=== PATIENT | female | born 1985 | race Asian ===

== ENCOUNTER 2017-07-03 10:16 | Emergency (ER) | payer MEDICAID, OTHER ==
[~2017-07-03] VITALS: Ht 154.9 cm; Wt 63.6 kg
[~2017-07-03 10:16] MED LIST: AMLO-512 PO; ATOR10TA84 PO; DSS100 PO; FERR-89 PO; HYDR25TA84 PO; LOSA50TA37 PO
[2017-07-03] MEDS ORDERED: CefTRIAXone SODIUM 1 GM/VIAL IM ONE (12:45)
[2017-07-03] MEDS ORDERED: LIDOCAINE HCL/PF 1% 2 ML VIAL IM ONE (12:45)
[2017-07-03] MEDS ORDERED: CloNIDine HCL 0.1 MG TABLET PO ONE (12:45)
[2017-07-03] MEDS ORDERED: HYDR-2924 PO (12:46)
[2017-07-03 13:51] VITALS: BP 169/98
== END 2017-07-03 14:38 | disposition home or self-care (01) ==
LOC: EMS 10:16
DX: J18.9 Pneumonia, unspecified organism (principal); I10 Essential (primary) hypertension
CPT/HCPCS: 71020; 96372; 99284; J0696; J3490

== ENCOUNTER 2017-07-06 00:26 | Inpatient (IN) | payer MEDICAID ==
[2017-07-06] VITALS (20 sets, daily range): BP systolic 131–158; BP diastolic 56–88
[~2017-07-06] VITALS: Ht 154.9 cm; Wt 70.7 kg
[~2017-07-06 00:26] MED LIST changes: -ATOR10TA84 PO; -DSS100 PO; -FERR-89 PO; +HYDR-2924 PO; -HYDR25TA84 PO; -LOSA50TA37 PO
[2017-07-06] MEDS ORDERED: AZIT250T9 PO (00:39)
[2017-07-06 01:20] LABS: BASOPHILS # (AUTO) 0.01 K/uL (0.00-0.20); EOSINOPHILS # (AUTO) 0.01 K/uL (0.00-0.70); EOSINOPHILS % (AUTO) 0.09 % (1.0-6.0); LYMPHOCYTES # (AUTO) 0.3 K/uL (1.0-4.8); LYMPHOCYTES % (AUTO) 1.9 % (22.0-44.0); MEAN CORPUSCULAR HEMOGLOBIN 28.2 pg (26.0-34.0); MEAN CORPUSCULAR HGB CONC 33.3 G/dL (31.0-37.0); MEAN CORPUSCULAR VOLUME 85 fL (80-100); MONOCYTES # (AUTO) 0.1 K/uL (0.1-1.0); MONOCYTES % (AUTO) 0.6 % (2.0-9.0); NEUTROPHILS # (AUTO) 15.1 K/uL (1.8-7.7); PLATELET COUNT (AUTO) 167 K/uL (150-450); RED CELL DISTRIBUTION WIDTH 17.1 % (11.5-14.5); WHITE BLOOD COUNT (AUTO) 15.5 K/uL (4.5-11.0)
[2017-07-06 01:26] LABS: NEUTROPHILS % (AUTO) 97.4 % (40.0-70.0)
[2017-07-06 01:27] LABS: HEMOGLOBIN 5.9 g/dL (12.0-16.0)
[2017-07-06 01:28] LABS: HEMATOCRIT 17.8 % (36-46)
[2017-07-06 01:43] LABS: ALBUMIN 3.3 g/dL (3.4-5.0); BILIRUBIN,TOTAL 0.5 mg/dL (0.1-1.0); CALCIUM, TOTAL 7.5 mg/dL (8.8-10.5); CREATININE 13.25 mg/dL (0.60-1.30); POTASSIUM 3.7 mmol/L (3.5-5.1); TOTAL PROTEIN, SERUM 7.7 g/dL (6.4-8.2)
[2017-07-06] MEDS ORDERED: SODIUM CHLORIDE 0.9% 1,000 ML IV ONE ×3 (02:15→03:30)
[2017-07-06] MEDS ORDERED: 0.9% SODIUM CHLORIDE 10 ML SYRINGE IVP PRN (03:30)
[2017-07-06] MEDS ORDERED: HYDROCODONE/ACETAMINOPHEN 5-325 MG TABLET PO PRN (03:30)
[2017-07-06] MEDS ORDERED: MORPHINE SULFATE 4 MG/ML SYRINGE IVP PRN (03:30)
[2017-07-06] MEDS ORDERED: ONDANSETRON HCL 4 MG/2 ML VIAL IVP PRN (03:30)
[2017-07-06] MEDS ORDERED: ACETAMINOPHEN 325 MG TABLET PO PRN ×2 (03:30→03:45)
[2017-07-06 04:03] LABS: APPEARANCE,URINE CLEAR (CLEAR); GLUCOSE, URINE (UA) 250 mg/dL (NEGATIVE); KETONES,URINE NEGATIVE (NEGATIVE); LEUKOCYTE ESTERASE ,URINE NEGATIVE (NEGATIVE); OCCULT BLOOD,URINE NEGATIVE (NEGATIVE); PROTEIN,URINE SEE CONFIRM (NEGATIVE)
[2017-07-06 04:06] LABS: ADD UA MICROSCOPIC YES
[2017-07-06 04:30] LABS: SULFOSALICYLIC ACID,URINE 3+ (Negative)
[2017-07-06 04:31] LABS: RBC,URINE 0-2 /HPF (0-2); WBC,URINE 0-2 /HPF (0-5)
[2017-07-06 07:04] LABS: CREATININE 12.61 mg/dL (0.60-1.30); MAGNESIUM 2.2 mg/dL (1.80-2.40); PHOSPHORUS 7.3 mg/dL (2.5-4.9); POTASSIUM 3.8 mmol/L (3.5-5.1)
[2017-07-06] MEDS: CefTRIAXone 1 GM/DEXTROSE 50 ML IV SCH (07:50)
[2017-07-06] MEDS ORDERED: SODIUM CHLORIDE 0.9% 1,000 ML IV SCH (08:00)
[2017-07-06] MEDS: PANTOPRAZOLE SODIUM 40 MG/VIAL IVP SCH (08:47)
[2017-07-06] MEDS: HydrALAZINE HCL 50 MG TABLET PO SCH ×2 (08:47→20:50)
[2017-07-06] MEDS ORDERED: AmLODIPine BESYLATE 10 MG TABLET PO SCH (09:00)
[2017-07-06] MEDS ORDERED: HydrALAZINE HCL 50 MG TABLET PO SCH (09:00)
[2017-07-06] MEDS ORDERED: SODIUM CHLORIDE 0.9% 500 ML IV ONE (09:23)
[2017-07-06] MEDS: AmLODIPine BESYLATE 10 MG TABLET PO SCH (09:37)
[2017-07-06] MEDS: HYDROCODONE/ACETAMINOPHEN 5-325 MG TABLET PO PRN ×2 (09:39→22:45)
[2017-07-06] MEDS: CALCIUM ACETATE 667 MG CAPSULE PO SCH ×2 (12:04→18:22)
[2017-07-06] MEDS: ONDANSETRON HCL 4 MG/2 ML VIAL IVP PRN (23:06)
[2017-07-07 04:51] VITALS: BP 152/84
[2017-07-07 07:52] VITALS: BP 155/85
[2017-07-07] MEDS: CALCIUM ACETATE 667 MG CAPSULE PO SCH ×3 (08:15→18:40)
[2017-07-07] MEDS: AmLODIPine BESYLATE 10 MG TABLET PO SCH (08:15)
[2017-07-07] MEDS: HydrALAZINE HCL 50 MG TABLET PO SCH ×2 (08:15→20:29)
[2017-07-07] MEDS: PANTOPRAZOLE SODIUM 40 MG/VIAL IVP SCH (09:10)
[2017-07-07] MEDS: CefTRIAXone 1 GM/DEXTROSE 50 ML IV SCH (09:10)
[2017-07-07 09:14] LABS: BASOPHILS # (AUTO) 0.01 K/uL (0.00-0.20); BASOPHILS % (AUTO) 0.1 % (0.0-2.0); EOSINOPHILS # (AUTO) 0.08 K/uL (0.00-0.70); EOSINOPHILS % (AUTO) 0.85 % (1.0-6.0); HEMATOCRIT 23.7 % (36-46); HEMOGLOBIN 7.9 g/dL (12.0-16.0); LYMPHOCYTES # (AUTO) 0.8 K/uL (1.0-4.8); MEAN CORPUSCULAR HGB CONC 33.4 G/dL (31.0-37.0); MEAN CORPUSCULAR VOLUME 84 fL (80-100); MONOCYTES # (AUTO) 0.5 K/uL (0.1-1.0); MONOCYTES % (AUTO) 4.5 % (2.0-9.0); NEUTROPHILS # (AUTO) 8.5 K/uL (1.8-7.7); PLATELET COUNT (AUTO) 148 K/uL (150-450); RED BLOOD CELL COUNT(AUTO) 2.83 MIL/uL (4.00-5.20); RED CELL DISTRIBUTION WIDTH 16.3 % (11.5-14.5); WHITE BLOOD COUNT (AUTO) 9.8 K/uL (4.5-11.0)
[2017-07-07 09:15] LABS: NEUTROPHILS % (AUTO) 86.4 % (40.0-70.0)
[2017-07-07 09:22] LABS: CREATININE 13.26 mg/dL (0.60-1.30); POTASSIUM 3.5 mmol/L (3.5-5.1)
[2017-07-07 09:47] LABS: RBC MORPHOLOGY COMMENT ABNORMAL RBC MORPH
[2017-07-07] MEDS: ONDANSETRON HCL 4 MG/2 ML VIAL IVP PRN (10:22)
[2017-07-07 11:17] VITALS: BP 155/80
[2017-07-07 15:23] VITALS: BP 157/81
[2017-07-07] MEDS ORDERED: PHOSLOC PO (16:20)
[2017-07-07] MEDS ORDERED: ATOR10TA84 PO (16:20)
[2017-07-07] MEDS ORDERED: FERR325T22 PO (16:20)
[2017-07-07 19:54] VITALS: BP 163/89
[2017-07-07] MEDS: METOPROLOL TARTRATE 25 MG TABLET PO SCH (20:29)
[2017-07-07 23:38] VITALS: BP 136/78
[2017-07-08] VITALS (7 sets, daily range): BP systolic 133–178; BP diastolic 75–89
[2017-07-08 06:45] LABS: BASOPHILS % (AUTO) 0.3 % (0.0-2.0); EOSINOPHILS % (AUTO) 2.5 % (1.0-6.0); HEMATOCRIT 25.7 % (36-46); HEMOGLOBIN 8.8 g/dL (12.0-16.0); LYMPHOCYTES # (AUTO) 0.7 K/uL (1.0-4.8); MEAN CORPUSCULAR HEMOGLOBIN 28.9 pg (26.0-34.0); MEAN CORPUSCULAR HGB CONC 34.4 G/dL (31.0-37.0); MEAN CORPUSCULAR VOLUME 84 fL (80-100); MONOCYTES # (AUTO) 0.5 K/uL (0.1-1.0); MONOCYTES % (AUTO) 4.9 % (2.0-9.0); NEUTROPHILS # (AUTO) 8.5 K/uL (1.8-7.7); PLATELET COUNT (AUTO) 205 K/uL (150-450); RED BLOOD CELL COUNT(AUTO) 3.05 MIL/uL (4.00-5.20); RED CELL DISTRIBUTION WIDTH 15.6 % (11.5-14.5)
[2017-07-08 06:52] LABS: NEUTROPHILS % (AUTO) 85.3 % (40.0-70.0)
[2017-07-08 07:43] LABS: CALCIUM, TOTAL 8.4 mg/dL (8.8-10.5); CREATININE 13.57 mg/dL (0.60-1.30); MAGNESIUM 2.5 mg/dL (1.80-2.40); PHOSPHORUS 8.8 mg/dL (2.5-4.9); POTASSIUM 3.9 mmol/L (3.5-5.1)
[2017-07-08] MEDS: CALCIUM ACETATE 667 MG CAPSULE PO SCH ×4 (08:00→18:48)
[2017-07-08] MEDS: EPOETIN ALFA 10,000 UNITS/ML VIAL SQ SCH (08:18)
[2017-07-08] MEDS: AmLODIPine BESYLATE 10 MG TABLET PO SCH (08:18)
[2017-07-08] MEDS: METOPROLOL TARTRATE 25 MG TABLET PO SCH ×2 (08:18→21:30)
[2017-07-08] MEDS: PANTOPRAZOLE SODIUM 40 MG/VIAL IVP SCH (08:18)
[2017-07-08] MEDS: HydrALAZINE HCL 50 MG TABLET PO SCH ×2 (08:19→21:30)
[2017-07-08] MEDS: CefTRIAXone 1 GM/DEXTROSE 50 ML IV SCH (09:15)
[2017-07-08 09:57] LABS: INR 0.9 (0.9-1.1)
[2017-07-08] MEDS ORDERED: HEPARIN SODIUM,PORCINE 1,000 UNITS/ML 10 ML VIAL ONE (11:32)
[2017-07-08] MEDS ORDERED: LIDOCAINE HCL/PF 1% 30 ML VIAL ONE (11:32)
[2017-07-08] MEDS ORDERED: HEPARIN SODIUM 1000 UNITS/NS 500 ML ONE (11:33)
[2017-07-08] MEDS ORDERED: MIDAZOLAM HCL 2 MG/2 ML VIAL ONE (12:06)
[2017-07-08] MEDS ORDERED: FentaNYL CITRATE-PF 100 MCG/2 ML VIAL ONE (12:06)
[2017-07-08] MEDS ORDERED: MIDAZOLAM HCL 2 MG/2 ML VIAL IVP ONE (12:19)
[2017-07-08] MEDS ORDERED: FentaNYL CITRATE-PF 100 MCG/2 ML VIAL IVP ONE (12:19)
[2017-07-08] MEDS: ONDANSETRON HCL 4 MG/2 ML VIAL IVP PRN (22:51)
[2017-07-09] VITALS (7 sets, daily range): BP systolic 145–154; BP diastolic 77–100
[2017-07-09] MEDS: ONDANSETRON HCL 4 MG/2 ML VIAL IVP PRN ×2 (07:43→14:18)
[2017-07-09] MEDS: AmLODIPine BESYLATE 10 MG TABLET PO SCH (08:22)
[2017-07-09] MEDS: METOPROLOL TARTRATE 25 MG TABLET PO SCH ×2 (08:22→20:57)
[2017-07-09] MEDS: CALCIUM ACETATE 667 MG CAPSULE PO SCH ×3 (08:22→17:46)
[2017-07-09] MEDS: HydrALAZINE HCL 50 MG TABLET PO SCH ×3 (08:22→20:57)
[2017-07-09] MEDS: PANTOPRAZOLE SODIUM 40 MG/VIAL IVP SCH (08:22)
[2017-07-09] MEDS: CefTRIAXone 1 GM/DEXTROSE 50 ML IV SCH (08:26)
[2017-07-09] MEDS ORDERED: SODIUM CHLORIDE 0.9% 2,000 ML IV ONE (10:37)
[2017-07-09] MEDS ORDERED: HEPARIN SODIUM,PORCINE 1,000 UNITS/ML VIAL IVP ONE (12:28)
[2017-07-09] MEDS ORDERED: ALBUMIN HUMAN 25%-12.5GM/50ML IV BOTTLE IV ONE (12:28)
[2017-07-09] MEDS: HYDROCODONE/ACETAMINOPHEN 5-325 MG TABLET PO PRN (12:45)
[2017-07-09] MEDS: SODIUM BICARBONATE 650 MG TABLET PO SCH ×2 (14:18→20:57)
[2017-07-09] MEDS: VITAMIN B COMP/VIT C/FOLIC ACID CAPSULE PO SCH (14:18)
[2017-07-09] MEDS ORDERED: LACTULOSE 20 GM/30 ML SOLUTION UDCUP PO ONE (14:45)
[2017-07-09] MEDS ORDERED: CloNIDine HCL 0.1 MG TABLET PO PRN (16:00)
[2017-07-10 05:37] VITALS: BP 139/84
[2017-07-10 07:28] VITALS: BP 149/79
[2017-07-10] MEDS: PANTOPRAZOLE SODIUM 40 MG/VIAL IVP SCH (08:29)
[2017-07-10] MEDS: VITAMIN B COMP/VIT C/FOLIC ACID CAPSULE PO SCH (08:30)
[2017-07-10] MEDS: SODIUM BICARBONATE 650 MG TABLET PO SCH (08:30)
[2017-07-10] MEDS: CALCIUM ACETATE 667 MG CAPSULE PO SCH (08:30)
[2017-07-10] MEDS: CefTRIAXone 1 GM/DEXTROSE 50 ML IV SCH (08:31)
[2017-07-10] MEDS: HydrALAZINE HCL 50 MG TABLET PO SCH ×2 (09:00→14:46)
[2017-07-10] MEDS: ONDANSETRON HCL 4 MG/2 ML VIAL IVP PRN (10:35)
[2017-07-10] MEDS: HYDROCODONE/ACETAMINOPHEN 5-325 MG TABLET PO PRN (11:22)
[2017-07-10 11:50] VITALS: BP 151/89
[2017-07-10] MEDS ORDERED: CALCIUM ACETATE 667 MG CAPSULE PO SCH (12:00)
[2017-07-10] MEDS ORDERED: HEPARIN SODIUM,PORCINE 1,000 UNITS/ML VIAL IVP ONE ×2 (14:15)
[2017-07-10] MEDS: METOPROLOL TARTRATE 25 MG TABLET PO SCH (14:47)
[2017-07-10] MEDS: EPOETIN ALFA 10,000 UNITS/ML VIAL SQ SCH (14:47)
[2017-07-10] MEDS: AmLODIPine BESYLATE 10 MG TABLET PO SCH (14:48)
[2017-07-10 15:18] VITALS: BP 161/91
[2017-07-10] MEDS ORDERED: ONDA4 PO (15:41)
[2017-07-10] MEDS ORDERED: METO25 PO (15:41)
[2017-07-10] MEDS ORDERED: SODIUM BICARBONATE 650 MG TABLET PO SCH (21:00)
== END 2017-07-10 16:30 | disposition home or self-care (01) | DRG 470 ==
LOC: EMS 00:28 → 5S 05:43
PROVIDERS: ADMIT Internal Medicine; ATTEND Internal Medicine
PROC: 30233N1 Transfusion of Nonautologous Red Blood Cells into Peripheral Vein, Percutaneous Approach (ICD-10-PCS; 2017-07-06)
PROC: 02HV33Z Insertion of Infusion Device into Superior Vena Cava, Percutaneous Approach (ICD-10-PCS; principal; 2017-07-08)
PROC: 5A1D70Z Performance of Urinary Filtration, Intermittent, Less than 6 Hours Per Day (ICD-10-PCS; 2017-07-08)
PROC: B5181ZA Fluoroscopy of Superior Vena Cava using Low Osmolar Contrast, Guidance (ICD-10-PCS; 2017-07-08)
PROC: B548ZZA Ultrasonography of Superior Vena Cava, Guidance (ICD-10-PCS; 2017-07-08)
DX: I12.0 Hypertensive chronic kidney disease with stage 5 chronic kidney disease or end stage renal disease (principal); E43 Unspecified severe protein-calorie malnutrition; N17.9 Acute kidney failure, unspecified; N25.81 Secondary hyperparathyroidism of renal origin; D63.1 Anemia in chronic kidney disease; E87.1 Hypo-osmolality and hyponatremia; E86.0 Dehydration; E83.39 Other disorders of phosphorus metabolism; N18.6 End stage renal disease; N28.83 Nephroptosis; Z68.29 Body mass index [BMI] 29.0-29.9, adult; Z79.2 Long term (current) use of antibiotics; Z79.899 Other long term (current) drug therapy
CPT/HCPCS: 36245; 36430; 36561; 76937; 82271; 82570; 83540; 83550; 83605; 83735; 83935; 84100; 84295; 84300; 86850; 86900; 86901; 86920; 87040; 87340; 90761; 90935; 93005; 99291; C9113; J0696; J0885; J1644; J2250; J2405; J3010; J3490; J7030; J7040; P9016; P9047

== ENCOUNTER 2017-09-24 17:32 | Inpatient (IN) | payer MEDICAID, OTHER ==
[~2017-09-24] VITALS: Ht 154.9 cm; Wt 59.9 kg
[~2017-09-24 17:32] MED LIST changes: +ATOR10TA84 PO; +FERR325T22 PO; +METO25 PO; +ONDA4 PO; +PHOSLOC PO
[2017-09-24 20:19] LABS: BASOPHILS % (AUTO) 0.9 % (0.0-2.0); EOSINOPHILS % (AUTO) 9.1 % (1.0-6.0); HEMATOCRIT 34.8 % (36-46); HEMOGLOBIN 11.6 g/dL (12.0-16.0); LYMPHOCYTES # (AUTO) 1.3 K/uL (1.0-4.8); MEAN CORPUSCULAR HEMOGLOBIN 30.2 pg (26.0-34.0); MEAN CORPUSCULAR HGB CONC 33.2 G/dL (31.0-37.0); MEAN CORPUSCULAR VOLUME 91 fL (80-100); MONOCYTES # (AUTO) 0.5 K/uL (0.1-1.0); NEUTROPHILS # (AUTO) 2.8 K/uL (1.8-7.7); PLATELET COUNT (AUTO) 261 K/uL (150-450); RED BLOOD CELL COUNT(AUTO) 3.82 MIL/uL (4.00-5.20); RED CELL DISTRIBUTION WIDTH 14.2 % (11.5-14.5)
[2017-09-24 20:44] LABS: CALCIUM, TOTAL 9.8 mg/dL (8.8-10.5); CREATININE 17.49 mg/dL (0.60-1.30); POTASSIUM 5.8 mmol/L (3.5-5.1)
[2017-09-24 20:46] LABS: ALBUMIN 3.7 g/dL (3.4-5.0); BILIRUBIN,TOTAL 0.3 mg/dL (0.1-1.0); TOTAL PROTEIN, SERUM 7.6 g/dL (6.4-8.2)
[2017-09-24] MEDS ORDERED: DEXTROSE 50%-WATER 25 GM/50 ML SYRINGE IVP ONE (21:00)
[2017-09-24] MEDS ORDERED: ALBUTEROL SULFATE 5 MG/ML 20 ML NEB SOLN [BULK] NEB ONE (21:00)
[2017-09-24] MEDS ORDERED: INSULIN REGULAR, HUMAN 100 UNITS/ML IVP ONE (21:00)
[2017-09-24] MEDS ORDERED: BISACODYL 10 MG RECTAL RECTAL SUPPOSITORY PR PRN (21:45)
[2017-09-24] MEDS ORDERED: ACETAMINOPHEN 325 MG TABLET PO PRN (21:45)
[2017-09-24] MEDS ORDERED: SODIUM CHLORIDE 0.9% 1,000 ML IV ONE ×2 (22:44)
[2017-09-24 22:45] VITALS: BP 162/84
[2017-09-24 23:57] VITALS: BP 149/91
[2017-09-25] MEDS ORDERED: MANNITOL 25%-12.5 GM/50 ML VIAL IVP PRN (00:15)
[2017-09-25] MEDS ORDERED: HEPARIN SODIUM,PORCINE 1,000 UNITS/ML VIAL IVP ONE ×3 (00:15→12:00)
[2017-09-25 04:41] VITALS: BP 139/77
[2017-09-25 07:21] VITALS: BP 136/77
[2017-09-25 07:27] LABS: CALCIUM, TOTAL 8.5 mg/dL (8.8-10.5); CREATININE 9.14 mg/dL (0.60-1.30); POTASSIUM 4.4 mmol/L (3.5-5.1)
[2017-09-25] MEDS ORDERED: CALCIUM ACETATE 667 MG CAPSULE PO SCH (08:00)
[2017-09-25] MEDS ORDERED: DOCUSATE SODIUM 100 MG CAPSULE PO SCH (09:00)
[2017-09-25] MEDS ORDERED: PANTOPRAZOLE SODIUM 40 MG DR TABLET PO SCH (09:00)
[2017-09-25 10:44] VITALS: BP 135/75
== END 2017-09-25 12:25 | disposition home or self-care (01) | DRG 425 ==
LOC: EMS 17:33 → 5N 22:15
PROVIDERS: ADMIT Internal Medicine; ATTEND Internal Medicine
PROC: 5A1D70Z Performance of Urinary Filtration, Intermittent, Less than 6 Hours Per Day (ICD-10-PCS; principal; 2017-09-24)
DX: E87.5 Hyperkalemia (principal); I12.0 Hypertensive chronic kidney disease with stage 5 chronic kidney disease or end stage renal disease; N18.6 End stage renal disease; Z99.2 Dependence on renal dialysis; Z79.899 Other long term (current) drug therapy
CPT/HCPCS: 87081; 93005; J1644; J1815; J7030

== ENCOUNTER 2017-11-13 22:09 | Emergency (ER) | payer OTHER ==
[~2017-11-13] VITALS: Ht 154.9 cm; Wt 56.8 kg
[~2017-11-13 22:09] MED LIST changes: -FERR325T22 PO; -HYDR-2924 PO; -METO25 PO
[2017-11-13] MEDS ORDERED: HYDR-2924 PO (22:40)
[2017-11-13] MEDS ORDERED: PHOSLOC PO (22:40)
[2017-11-14 01:46] LABS: BASOPHILS % (AUTO) 0.5 % (0.0-2.0); EOSINOPHILS % (AUTO) 8.5 % (1.0-6.0); HEMATOCRIT 34.5 % (36-46); HEMOGLOBIN 11.4 g/dL (12.0-16.0); LYMPHOCYTES % (AUTO) 16.1 % (22.0-44.0); MEAN CORPUSCULAR HEMOGLOBIN 31.2 pg (26.0-34.0); MEAN CORPUSCULAR VOLUME 95 fL (80-100); MONOCYTES # (AUTO) 0.6 K/uL (0.1-1.0); MONOCYTES % (AUTO) 9.6 % (2.0-9.0); NEUTROPHILS # (AUTO) 4.2 K/uL (1.8-7.7); NEUTROPHILS % (AUTO) 65.3 % (40.0-70.0); PLATELET COUNT (AUTO) 215 K/uL (150-450); RED BLOOD CELL COUNT(AUTO) 3.65 MIL/uL (4.00-5.20); RED CELL DISTRIBUTION WIDTH 17.2 % (11.5-14.5)
[2017-11-14 01:56] LABS: CREATININE 9.21 mg/dL (0.60-1.30); POTASSIUM 4.1 mmol/L (3.5-5.1)
[2017-11-14 02:01] LABS: ALBUMIN 3.6 g/dL (3.4-5.0); BILIRUBIN,TOTAL 0.4 mg/dL (0.1-1.0)
[2017-11-14 03:49] VITALS: BP 123/79
== END 2017-11-14 03:50 | disposition home or self-care (01) ==
LOC: EMS 22:09
DX: R06.00 Dyspnea, unspecified (principal); R07.89 Other chest pain; I12.0 Hypertensive chronic kidney disease with stage 5 chronic kidney disease or end stage renal disease; N18.6 End stage renal disease; Z99.2 Dependence on renal dialysis; Z79.899 Other long term (current) drug therapy
CPT/HCPCS: 93005; 99285

== ENCOUNTER 2018-02-01 14:17 | Emergency (ER) | payer OTHER ==
[~2018-02-01] VITALS: Ht 154.9 cm; Wt 56.8 kg
[~2018-02-01 14:17] MED LIST changes: +HYDR-2924 PO; -ONDA4 PO
[2018-02-01] MEDS ORDERED: MINERAL OIL/PETROLATUM,WHITE PF 3.5 GM OPHTHALMIC OINTMENT OS ONE (17:00)
[2018-02-01] MEDS ORDERED: HYDROCODONE/ACETAMINOPHEN 5-325 MG TABLET PO ONE (17:00)
[2018-02-01 17:28] LABS: BASOPHILS % (AUTO) 0.5 % (0.0-2.0); EOSINOPHILS % (AUTO) 2.7 % (1.0-6.0); HEMATOCRIT 34.5 % (36-46); HEMOGLOBIN 11.6 g/dL (12.0-16.0); LYMPHOCYTES # (AUTO) 0.9 K/uL (1.0-4.8); LYMPHOCYTES % (AUTO) 11.5 % (22.0-44.0); MEAN CORPUSCULAR HEMOGLOBIN 30.9 pg (26.0-34.0); MEAN CORPUSCULAR HGB CONC 33.8 G/dL (31.0-37.0); MEAN CORPUSCULAR VOLUME 92 fL (80-100); MONOCYTES # (AUTO) 0.6 K/uL (0.1-1.0); MONOCYTES % (AUTO) 8.6 % (2.0-9.0); NEUTROPHILS # (AUTO) 5.8 K/uL (1.8-7.7); NEUTROPHILS % (AUTO) 76.7 % (40.0-70.0); PLATELET COUNT (AUTO) 218 K/uL (150-450); RED BLOOD CELL COUNT(AUTO) 3.76 MIL/uL (4.00-5.20); RED CELL DISTRIBUTION WIDTH 14.3 % (11.5-14.5)
[2018-02-01 17:30] LABS: APPEARANCE,URINE CLEAR (CLEAR); BILIRUBIN,URINE NEGATIVE (NEGATIVE); GLUCOSE, URINE (UA) 100 mg/dL (NEGATIVE); KETONES,URINE NEGATIVE (NEGATIVE); LEUKOCYTE ESTERASE ,URINE NEGATIVE (NEGATIVE); NITRATE,URINE NEGATIVE (NEGATIVE); OCCULT BLOOD,URINE NEGATIVE (NEGATIVE); PROTEIN,URINE SEE CONFIRM (NEGATIVE); UROBILINOGEN,URINE 0.2 mg/dL (<=1.0)
[2018-02-01 17:45] LABS: CALCIUM, TOTAL 9.4 mg/dL (8.8-10.5); CREATININE 9.21 mg/dL (0.60-1.30); POTASSIUM 4.2 mmol/L (3.5-5.1)
[2018-02-01 17:49] LABS: ALBUMIN 3.8 g/dL (3.4-5.0); BILIRUBIN,TOTAL 0.3 mg/dL (0.1-1.0); TOTAL PROTEIN, SERUM 7.5 g/dL (6.4-8.2)
[2018-02-01 17:50] LABS: SULFOSALICYLIC ACID,URINE 1+ (Negative)
[2018-02-01 17:52] LABS: RBC,URINE None Seen /HPF (0-2); WBC,URINE None Seen /HPF (0-5)
[2018-02-01 17:53] LABS: BACTERIA,URINE None Seen /HPF (None Seen); SQUAMOUS EPITHELIAL CELL,UR Moderate /LPF (None Seen)
[2018-02-01 19:25] VITALS: BP 137/73
== END 2018-02-01 19:57 | disposition home or self-care (01) ==
LOC: EMS 14:19
DX: R51 Headache (principal); E87.1 Hypo-osmolality and hyponatremia; H11.003 Unspecified pterygium of eye, bilateral; I12.0 Hypertensive chronic kidney disease with stage 5 chronic kidney disease or end stage renal disease; N18.6 End stage renal disease; Z99.2 Dependence on renal dialysis; Z79.899 Other long term (current) drug therapy
CPT/HCPCS: 99284